=== PATIENT | female | born 1935 | race Caucasian/White ===

== ENCOUNTER 2020-11-04 17:41 | Emergency (ER) | payer MEDICARE, MEDICAID ==
[~2020-11-04] VITALS: Ht 162.6 cm; Wt 89.5 kg
[~2020-11-04 17:41] MED LIST: ACET325T14 PO; ASPI325T17 PO; ATOR20TA PO; ATOR40TA78 PO; BENA40TA3 PO; INSU100I11 SQ-INSULIN; INSU100V13 SQ; METF10002 PO; ONDA4TAB7 PO; OXYC5TAB2 PO
[2020-11-04 17:44] VITALS: BP 193/76
--- NOTE | 2020-11-04 18:37 | NUR ---
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
== END 2020-11-04 19:38 | disposition left against medical advice (07) ==
LOC: ED 18:43
DX: M79.605 Pain in left leg (principal); Z53.21 Procedure and treatment not carried out due to patient leaving prior to being seen by health care provider